=== PATIENT | female | born 1960 | race African-American/Black ===

== ENCOUNTER 2018-07-21 07:22 | Emergency (ER) | payer SELFPAY ==
--- NOTE | 2018-07-21 08:49 | ER ---
Nurse's Notes [facility] Name: Enedina Gutierrez Age: 57 yrs Sex: Female : 1960 Arrival Date: 07/21/2018 Time: 07:27 Bed 16 Private MD: Out, [facility] Diagnosis: Impacted cerumen, left ear Presentation: 07/21 07:31 Presenting complaint: Patient states: left ear pain started Isaac. Attempted to clean sv it with some wax remover and hydrogen peroxide but it feels clogged. Transition of care: patient was not received from another setting of care. Onset of symptoms was July 18, 2018. Care prior to arrival: None. 07:31 Method Of Arrival: Ambulatory sv 07:31 Acuity: MUNIRA 4 sv 07:55 Risk Assessment: Do you want to hurt yourself or someone else? Patient reports no ph desire to harm self or others. 07:58 Initial Sepsis Screen: Does the patient meet any 2 criteria? No. Patient's initial ph sepsis screen is negative. Does the patient have a suspected source of infection? No. Patient's initial sepsis screen is negative. Triage Assessment: 07:31 General: Appears in no apparent distress. comfortable, well developed, Behavior is sv calm, cooperative, appropriate for age. Pain: Complains of pain in left ear Pain currently is 6 out of 10 on a pain scale. EENT: Reports pain in left ear. Neuro: Level of Consciousness is awake, alert, obeys commands, Oriented to person, place, time, situation, Gait is steady. Respiratory: Respiratory effort is even, unlabored, Respiratory pattern is regular, symmetrical. Historical: - Allergies: 07:32 PENICILLINS; sv - PMHx: 07:32 None; sv - PSHx: 07:32 ankle; leg; sv - Immunization history:: Adult Immunizations up to date. - Social history:: Smoking status: Patient/guardian denies using tobacco. - Ebola Screening: : No symptoms or risks identified at this time. Screenin:55 Abuse screen: Denies threats or abuse. Denies injuries from another. Nutritional ph screening: No deficits noted. Tuberculosis screening: No symptoms or risk factors identified. Fall Risk None identified. Assessment: 08:12 General: Appears in no apparent distress. comfortable, well groomed, Behavior is calm, ph cooperative, appropriate for age. Pain: Complains of pain in left ear. Neuro: Level of Consciousness is awake, alert, obeys commands, Oriented to person, place, time, situation. Cardiovascular: Capillary refill < 3 seconds in bilateral fingers Patient's skin is warm and dry. Respiratory: Airway is patent Respiratory effort is even, unlabored, Respiratory pattern is regular, symmetrical. GI: No signs and/or symptoms were reported involving the gastrointestinal system. EENT: Reports decreased hearing in left ear. Derm: Skin is intact, is healthy with good turgor, Skin is pink, warm \\T\\ dry. Musculoskeletal: Circulation, motion, and sensation intact. Range of motion: intact in all extremities. 09:25 Reassessment: Patient appears in no apparent distress at this time. Patient and/or ph family updated on plan of care and expected duration. Pain level reassessed. Patient is alert, oriented x 3, equal unlabored respirations, skin warm/dry/pink. Pt d/c home w/ family. Vital Signs: 07:32 BP 159 / 81; Pulse 76; Resp 20; Temp 97.6; Pulse Ox 98% ; Weight 129.73 kg; Height 5 sv ft. 6 in. (167.64 cm); Pain 6/10; 09:26 BP 142 / 78; Pulse 74; Resp 18; Temp 98.0; Pulse Ox 99% on R/A; ph 07:32 Body Mass Index 46.16 (129.73 kg, 167.64 cm) sv ED Course: 07:27 Patient arrived in ED. dl4 07:28 Out, [facility] is Private Physician. dl4 07:31 Triage completed. sv 07:32 Arm band placed on. sv 07:35 Dionicio Chapa NP is PHCP. pm1 07:35 Molina Leiva MD is Attending Physician. pm1 07:47 Kristen Antoine, PUNEET is Primary Nurse. ph 07:56 Patient has correct armband on for positive identification. Pulse ox on. NIBP on. ph 09:26 No provider procedures requiring assistance completed. Patient did not have IV access ph during this emergency room visit. Administered Medications: No medications were administered Outcome: 08:49 Discharge ordered by MD. pm1 09:27 Discharged to home ambulatory, with family. ph 09:27 Condition: good 09:27 Discharge instructions given to patient, Instructed on discharge instructions, follow up and referral plans. medication usage, Demonstrated understanding of instructions, follow-up care, medications, Prescriptions given X 1. 09:27 Patient left the ED. ph Signatures: Linda Lopez RN RN Kristen Antoine RN RN Dionicio Chapa, GOAT DRIVER GOAT DRIVER pm1 Sayda, Ted dl4 Corrections: (The following items were deleted from the chart) 07:33 07:32 Pulse 76bpm; Resp 20bpm; Pulse Ox 98%; Temp 97.6F; 129.73 kg; Height 5 ft. 6 in.; sv BMI: 46.1; Pain 6/10; sv 07:57 07:47 General: Appears in no apparent distress. comfortable, obese, well groomed, ph Behavior is calm, cooperative, appropriate for age, Reports chills for >3 days, fever for > 3 days, ph 07:57 07:47 Pain: Complains of pain in chest and "all over" ph ph 07:57 07:47 Neuro: Level of Consciousness is awake, alert, obeys commands, Oriented to ph person, place, time, situation, ph 07:57 07:47 Cardiovascular: Reports chest pain, shortness of breath, vomiting, Capillary ph refill < 3 seconds in bilateral fingers Patient's skin is warm and dry. Chest pain is located in right left anterior chest wall is aggravated by breathing, ph 07:57 07:47 Respiratory: Reports shortness of breath cough that is productive, pain with ph cough pain with respiration Airway is patent Respiratory effort is even, unlabored, Respiratory pattern is regular, symmetrical, Breath sounds are coarse in mediastinum ph 07:57 07:47 GI: Reports diarrhea, vomiting, Patient currently denies abdominal pain, nausea, ph ph 07:57 07:47 EENT: Reports nasal congestion Denies pain when swallowing ph ph 07:57 07:47 Derm: Skin is intact, ph ph 07:57 07:47 Musculoskeletal: Circulation, motion, and sensation intact. Range of motion: ph intact in all extremities, ph 07:57 07:53 Reassessment: Patient appears in no apparent distress at this time. Patient ph and/or family updated on plan of care and expected duration. Pain level reassessed. Patient is alert, oriented x 3, equal unlabored respirations, skin warm/dry/pink. neb tx complete, pt taken for xray via wheelchair ph 07:57 07:40 Inserted saline lock: 22 gauge in right wrist, using aseptic technique. Blood ph collected. Missed attempt(s): 20 gauge in right antecubital area. Bleeding controlled, band aid applied, catheter tip intact. ph 07:58 07:55 Initial Sepsis Screen: Does the patient meet any 2 criteria? No. Patient's ph initial sepsis screen is negative. Does the patient have a suspected source of infection? Yes: Productive cough/pneumonia ph
--- NOTE | 2018-07-21 08:49 | EDPHYS ---
Physician Documentation [facility] Name: Enedina Gutierrez Age: 57 yrs Sex: Female : 1960 Arrival Date: 07/21/2018 Time: 07:27 Bed 16 Private MD: Out, [facility] ED Physician Molina Leiva HPI: 07/21 07:50 This 57 yrs old Black Female presents to ER via Ambulatory with complaints of Left Ear pm1 Pain. 07:50 The patient presents with pain, decreased hearing. The complaints affect the left ear. pm1 Onset: The symptoms/episode began/occurred 3 day(s) ago. Modifying factors: The symptoms are alleviated by nothing, the symptoms are aggravated by nothing. Associated signs and symptoms: Pertinent negatives: fever, nausea, sore throat, tinnitus, vertigo, vomiting. Severity of symptoms: in the emergency department the symptoms are unchanged. The patient has not recently seen a physician. Patient reports no improvement or ability to remove wax with hydrogen peroxide, earwax removal kits. Historical: - Allergies: 07:32 PENICILLINS; sv - PMHx: 07:32 None; sv - PSHx: 07:32 ankle; leg; sv - Immunization history:: Adult Immunizations up to date. - Social history:: Smoking status: Patient/guardian denies using tobacco. - Ebola Screening: : No symptoms or risks identified at this time. ROS: 07:50 Constitutional: Negative for fever, chills, and weight loss, Eyes: Negative for injury, pm1 pain, redness, and discharge. 07:50 Neck: Negative for injury, pain, and swelling, Cardiovascular: Negative for chest pain, palpitations, and edema, Respiratory: Negative for shortness of breath, cough, wheezing, and pleuritic chest pain, Abdomen/GI: Negative for abdominal pain, nausea, vomiting, diarrhea, and constipation, Back: Negative for injury and pain, : Negative for injury, bleeding, discharge, and swelling, MS/Extremity: Negative for injury and deformity, Skin: Negative for injury, rash, and discoloration, Neuro: Negative for headache, weakness, numbness, tingling, and seizure. 07:50 ENT: Positive for ear pain, decreased hearing, Negative for drainage from ear(s), sinus congestion, sinus pain, sore throat, difficulty swallowing, difficulty handling secretions, hoarseness. Exam: 07:50 Constitutional: This is a well developed, well nourished patient who is awake, alert, pm1 and in no acute distress. Head/Face: Normocephalic, atraumatic. Eyes: Pupils equal round and reactive to light, extra-ocular motions intact. Lids and lashes normal. Conjunctiva and sclera are non-icteric and not injected. Cornea within normal limits. Periorbital areas with no swelling, redness, or edema. 07:50 Neck: Trachea midline, no thyromegaly or masses palpated, and no cervical lymphadenopathy. Supple, full range of motion without nuchal rigidity, or vertebral point tenderness. No Meningismus. Chest/axilla: Normal chest wall appearance and motion. Nontender with no deformity. No lesions are appreciated. Cardiovascular: Regular rate and rhythm with a normal S1 and S2. No gallops, murmurs, or rubs. Normal PMI, no JVD. No pulse deficits. Respiratory: Lungs have equal breath sounds bilaterally, clear to auscultation and percussion. No rales, rhonchi or wheezes noted. No increased work of breathing, no retractions or nasal flaring. Back: No spinal tenderness. No costovertebral tenderness. Full range of motion. Skin: Warm, dry with normal turgor. Normal color with no rashes, no lesions, and no evidence of cellulitis. MS/ Extremity: Pulses equal, no cyanosis. Neurovascular intact. Full, normal range of motion. 07:50 ENT: External ear(s): are unremarkable, Ear canal(s): cerumen impaction, occluding the left ear canal, TM's: not visable, because of cerumen, left ear, Examination of the other ear shows no obvious abnormality, right ear normal, Nose: is normal, Mouth: is normal, Posterior pharynx: is normal, airway is patent, normal tonsil apperance, normal sized tonsils, normal uvula appearance, normal uvula size. 07:50 Neuro: Orientation: is normal, Motor: is normal, moves all fours. Vital Signs: 07:32 BP 159 / 81; Pulse 76; Resp 20; Temp 97.6; Pulse Ox 98% ; Weight 129.73 kg; Height 5 sv ft. 6 in. (167.64 cm); Pain 6/10; 09:26 BP 142 / 78; Pulse 74; Resp 18; Temp 98.0; Pulse Ox 99% on R/A; ph 07:32 Body Mass Index 46.16 (129.73 kg, 167.64 cm) MDM: 07:36 Patient medically screened. [facility] 08:34 Data reviewed: vital signs. Data interpreted: Pulse oximetry: on room air is 98 %. pm1 Interpretation: normal. 08:40 ED course: Patient with continued decreased hearing and left ear pain despite attempts pm1 to remove cerumen at home with OT ear wax removal kits, q-tips, and hydrogen peroxide. Abrasion to left ear canal as a result of impacted cerumen removal with curette. Patient reports improved hearing. Unable to visualize left tympanic membrane. Will cover patient with antibiotics for abrasion. 08:48 Counseling: I had a detailed discussion with the patient and/or guardian regarding: the pm1 historical points, exam findings, and any diagnostic results supporting the discharge/admit diagnosis, the need for outpatient follow up, to return to the emergency department if symptoms worsen or persist or if there are any questions or concerns that arise at home. Administered Medications: No medications were administered Disposition: 07/22 08:42 Co-signature as Attending Physician, Molina Leiva MD I agree with the assessment and [facility] plan of care. Disposition: 07/21/18 08:49 Discharged to Home. Impression: Impacted cerumen, left ear. - Condition is Stable. - Discharge Instructions: Earwax Buildup, Adult. - Prescriptions for Zithromax Z- Patricio 250 mg Oral Tablet - take 1 tablet by ORAL route as directed for 5 days Day 1 - take two (2) tablets one time. Day 2, 3, 4 , 5 take one (1) tablet once daily.; 6 tablet. - Medication Reconciliation Form, Thank You Letter, Antibiotic Education, Prescription Opioid Use, Work release form form. - Follow up: Emergency Department; When: As needed; Reason: Worsening of condition. Follow up: Private Physician; When: 2 - 3 days; Reason: Recheck today's complaints, Continuance of care, Re-evaluation by your physician. - Problem is new. - Symptoms have improved. Signatures: Linda Lopez RN RN sv Anderson, Corey, MD MD cha Hall, Patricia RN RN ph Dioniico Chapa, [address] pm1 Corrections: (The following items were deleted from the chart) 07/21 09:27 08:49 07/21/2018 08:49 Discharged to Home. Impression: Impacted cerumen, left ear. ph Condition is Stable. Forms are Medication Reconciliation Form, Thank You Letter, Antibiotic Education, Prescription Opioid Use. Follow up: Emergency Department; When: As needed; Reason: Worsening of condition. Follow up: Private Physician; When: 2 - 3 days; Reason: Recheck today's complaints, Continuance of care, Re-evaluation by your physician. Problem is new. Symptoms have improved. pm1
[2018-07-21 09:33] VITALS: BP 142/78; TEMP 98; O2SAT 99
== END 2018-07-21 09:27 | disposition home or self-care (01) ==
LOC: ER 07:22
PROC: 09C47ZZ Extirpation of Matter from Left External Auditory Canal, Via Natural or Artificial Opening (ICD-10-PCS; principal; 2018-07-21)
DX: H61.22 Impacted cerumen, left ear (principal); Z88.0 Allergy status to penicillin
CPT/HCPCS: 99283

== ENCOUNTER 2024-02-02 09:34 | Emergency (ER) | payer OTHER ==
--- OUTSIDE RECORDS SUMMARY | 2024-02-02 09:37 | XMS REPORT | Continuity of Care Document ---
Author Name Unknown Address [address] [facility] [address] [place] [address] [facility] thconnect Address [address] [facility]. [address] [place] [address] Care Team Providers Care Environmental Tech Name Role Phone Piper Osman Attending Clinician Unavailable ELA GONSALES Attending Clinician Unavailab le DYLAN Attending Clinician Unavailable Piper Osman Admitting Clinician Unavailable Payers Payer Name Policy Type Policy Number Effective Date Expirati on Date Source [facility] DIMITRI LARSEN COPAY FOCUS 9 [id number] 2023 00:00:00 Problems Condition Name Condition Details Condition Category Status Onset Date Resolution Date Last Treatment Date Treating Clinician Comments Source Encounter for screening for lipid disorder Encounter for screening for lipid disorder Disease Active 05-27 00:00: 00 Alayna orozco Primary hypertensi on Primary hypertensi on Disease Active 05-27 00:00: 00 Alayna orozco History of bronchitis History of bronchitis Disease Active 05-27 00:00: 00 Alayna orozco Class 3 severe obesity due to excess calories without serious comorbidit y with body mass index (BMI) of 40.0 to 44.9 in adult Class 3 severe obesity due to excess calories without serious comorbidit y with body mass index (BMI) of 40.0 to 44.9 in adult Disease Active 05-27 00:00: 00 Alayna orozco Family history of diabetes mellitus Family history of diabetes mellitus Disease Active 05-27 00:00: 00 Alayna orozco Allergies, Adverse Reactions, Alerts Allergy Name Allergy Type Status Severity Reaction(s) Onset Date Inactive Date Treating Clinician Comments Source Penicill ins Propensi ty to adverse reaction s Active Hives 07-25 00:00: 00 Alayna orozco Tramadol Propensi ty to adverse reaction s Active Rash 07-25 00:00: 00 Alayna orozco Social History Social Habit Start Date Stop Date Quantity Comments Source Sexual orientation Luisa gallegos Lico - External Alcoholic beverage intake 2023-07-19 00:00:00 2023-07-19 00:00:00 Current drinker of alcohol (finding) Alayna Barfield - External Alcohol intake 2023-05-28 00:00:00 2023-05-28 00:00:00 Current drinker of alcohol (finding) Alayna Barfield - External History of Social function 2023-05-28 00:00:00 2023-05-28 00:00:00 lAayna Barfield - External Alcohol Comment 2023-05-28 00:00:00 2023-05-28 00:00:00 social Alayna Barfield - External Tobacco use and exposure 2023-05-28 00:00:00 2023-05-28 00:00:00 Smokeless tobacco non-user Alayna Barfield - External Sex assigned at 1960 00:00:00 1960 00:00:00 Alayna Barfield - External Smoking Status Start Date Stop Date Source Never smoked tobacco Alayna Barfield - External Medications Ordered Medication Name Filled Medication Name Start Date Stop Date Current Medication? Ordering Clinician Indication Dosage Frequency Signature (SIG) Comments Components Source Baclofen 10 MG oral Tablet 07-18 00:00: 00 Yes [id number] 10mg Q.5D Take 1 tablet (10 mg total) by mouth 2 times daily as needed for muscle spasms or pain No driving on medication . Alayna Holt Externa pam Metformin HCl 500 MG oral Tablet 06-10 00:00: 00 Yes [id number] 500mg Take 1 tablet (500 mg total) by mouth in the morning and 1 tablet (500 mg total) in the evening. Take with meals. Alayna orozco Blood Glucose Monitoring Suppl (Blood Glucose Monitor System) w/Device does not apply Kit 06-10 00:00: 00 Yes [id number] Please check blood sugars twice a day. Alayna orozco Glucose Blood in vitro Strip 06-10 00:00: 00 Yes [id number] 1{each} 1 each by other route daily. Alayna orozco Lancets [place] [facility] [place]:00: 00 Yes [id number] For twice daily glucose monitoring . Alayna orozco Amlodipine Besylate 10 MG oral Tablet 05-27 00:00: 00 Yes [id number] 10mg Take 1 tablet (10 mg total) by mouth daily. Alayna orozco LISINOPRIL- HCTZ 20-12.5 MG oral Tablet 05-27 00:00: 00 Yes [id number] 1{tbl} Take 1 tablet by mouth daily. Alayna orozco Metoprolol Succinate 100 MG oral TABLET SR 24 HR 05-27 00:00: 00 Yes [id number] 100mg Take 1 tablet (100 mg total) by mouth daily. Alayna orozco busPIRone HCl 10 MG oral Tablet 05-27 00:00: 00 Yes [id number] 10mg Q.5D Take 1 tablet (10 mg total) by mouth 2 times daily as needed. Alayna orozco Budesonide- Formoterol Fumarate (Symbicort) 80-4.5 MCG/ACT inhalation Aerosol 05-27 00:00: 00 07-18 00:00 :00 No [id number] 2{puff} Inhale 2 puffs into the lungs daily. Alayna orozco Albuterol HFA 108 (90 Base) MCG/ACT IN AERS 2022-02 00:00: 00 Yes Alayna orozco Amlodipine Besylate 10 MG oral Tablet 2022-02 00:00: 00 05-27 00:00 :00 No Alayna orozco Budesonide- Formoterol Fumarate (Symbicort) 80-4.5 MCG/ACT inhalation Aerosol 2022-02 0- 00:00: 00 05-27 00:00 :00 Ami orozco LISINOPRIL- HCTZ 20-12.5 MG oral Tablet 2022-02 0- 00:00: 00 05-27 00:00 :00 No Alayna orozco Metoprolol Succinate 100 MG oral TABLET SR 24 HR 2022-02- 00:00: 00 05-27 00:00 :00 Ami orozco Immunizations Ordered Immunization Name Filled Immunization Name Date Status Comments Source Influenza, Injectable, Mdck, Preservative Free, Quadrivalent Unknown Completed Alayna Barfield - External Influenza Virus Vaccine, No Preserv, age 6 months and up Unknown Completed Alayna davis - External Influenza Virus Vaccine, Quad, Egg Free Unknown Completed Aalyna Barfield - External RSV, Arexvy Unknown Completed Alayna davis - External Influenza, Injectable, Mdck, Preservative Free, Quadrivalent Unknown Completed Alayna Barfield - External Influenza Virus Vaccine, No Preserv, age 6 months and up Unknown Completed Alayna davis - External Influenza Virus Vaccine, Quad, Egg Free Unknown Completed Alayna Barfield - External RSV, Arexvy Unknown Completed Alayna davis - External Vital Signs Vital Name Observation Time Observation Value Comments S ource Systolic blood pressure 2023-07-19 18:50:00 132 mm[Hg] Alayna Kaur ld - External Diastolic blood pressure 2023-07-19 18:50:00 78 mm[Hg] Alayna Kaur ld - External Heart rate 2023-07-19 18:50:00 82 /min Luz Marina Barfield - External Body temperature 2023-07-19 18:50:00 36.67 Rosa Alayna Barfield - External Respiratory rate 2023-07-19 18:50:00 18 /min Alayna Barfield - External Body height 2023-07-19 18:50:00 167.6 cm Mary Ann Barfield - External Body weight 2023-07-19 18:50:00 135.796 kg Mary Ann ey Seybold - External BMI 2023-07-19 18:50:00 48.32 kg/m2 Mary Ann ey Seybold - External Oxygen saturation in Arterial blood by Pulse oximetry 2023-07-19 18:50:00 99 /min Alayna Kaur ld - External Systolic blood pressure 2023-05-28 14:25:00 136 mm[Hg] Alayna Hernandezo ld - External Diastolic blood pressure 2023-05-28 14:25:00 74 mm[Hg] Alayna Hernandezo ld - External Heart rate 2023-05-28 14:25:00 78 /min Jed y Seybold - External Body temperature 2023-05-28 14:25:00 36.61 Rosa Alayna Flynnybold - External Respiratory rate 2023-05-28 14:25:00 16 /min Alaynajames Barfield - External Body height 2023-05-28 14:25:00 167.6 cm Mary Ann quezada Seybold - External Body weight 2023-05-28 14:25:00 122.018 kg Mary Ann quezada Seybold - External BMI 2023-05-28 14:25:00 43.42 kg/m2 Mary Ann quezada Seybold - External Oxygen saturation in Arterial blood by Pulse oximetry 2023-05-28 14:25:00 98 /min Alayna Kaur ld - External Encounters Start Date/Time End Date/Time Encounter Type Admission Type Attending [facility] Care Department Encounter ID Source 2023-11-25 16:30:00 Outpatient OsmanPiper noland [facility] [id number] [facility] 2023-11-18 14:06:00 Outpatient OsmanPiper noland [facility] [id number] [facility] 2021-03-22 14:17:13 Outpatient OsmanPiper noland [facility] [id number] [facility] 2024-01-15 00:00:00 2024-01-15 00:00:00 Outpatient ELA GONSALES [id number] Alayna Barfield 2023-12-06 00:00:00 2023-12-06 00:00:00 Outpatient ELA GONSALES ALAYNA [id number] Alayna [facility] 2023-12-06 00:00:00 2023-12-06 00:00:00 Outpatient ELA GONSALES ALAYNA [id number] Alayna [facility] 2023-12-06 00:00:00 2023-12-06 00:00:00 Outpatient ELA GONSALES ALAYNA [id number] Alayna [facility] 2023-08-27 15:00:00 2023-08-27 15:00:00 Outpatient ELA GONSALES ALAYNA [id number] Alayna [facility] 2023-08-27 11:30:00 2023-08-27 11:30:00 Outpatient ELA GONSALES ALAYNA [id number] Alayna [facility] 2023-07-19 14:00:00 2023-07-19 14:00:00 Outpatient ELA GONSALES ALAYNA [id number] [facility] 2023-06-27 09:00:00 2023-06-27 09:00:00 Outpatient ELA GONSALES ALAYNA [id number] [facility] 2023-06-11 00:00:00 2023-06-11 00:00:00 Outpatient ELA GONSALES ALAYNA [id number] Alayna [facility] 2023-06-08 00:00:00 2023-06-08 00:00:00 [id number] [facility] 10:15:00 2023-05-28 10:15:00 Outpatient LABRebecca [facility] [id number] [facility] 09:30:00 2023-05-28 09:30:00 Outpatient ELA GONSALESJAMES RIVERO [id number] Alayna [facility] 2023-05-24 10:30:00 2023-05-24 10:30:00 Outpatient ELA GONSALESJAMES [facility]IV[facility] [id number] [facility]22-12-05 15:53:51 2022-12-05 15:53:51 Outpatient SFA [facility] [id number] 2022-05-02 13:24:26 2022-05-02 13:24:26 Outpatient SFA [facility] [id number] 2022-04-26 10:31:52 2022-04-26 10:31:52 Outpatient SFA [facility] [id number]vin 2022-01-26 16:38:57 2022-01-26 16:38:57 Outpatient [facility] [id number] [address] Garvin Results Test Description Test Time Test Comments Results Result Co mments Source LIPID [id number] 05:35:43* Test Item Value Reference Range Interpretation Comme nts CHOLESTEROL (test code = 2210) 156 MG/DL <200 TRIGLYCERIDES (test code = 2232) 91 MG/DL <150 HDL CHOLESTEROL (test code = 2220) 55 MG/DL >39 CALC LDL CHOL (test code = 2237) 82 MG/DL <100 NOTE: CALCULATED LDL IS BASED ON MICHAEL-JUAN METHOD WHICHINCLUDES ADJUSTABLE TRIGLYCERIDE:VLDL CHOLESTEROL RATIO.THIS FACTOR VARIES BY MEASURED TRIGLYCERIDE AND NON-HDLCHOLESTEROL CONCENTRATIONS WITH INCREASED CALCULATED LDL SEENIN HIGHER TRIGLYCERIDE OR LOWER NON-HDL SPECIMENS. FOR MOREINFORMATION, SEE CLIENT ANNOUNCEMENT AT [email or web address] RISK RATIO LDL/HDL (test code = 2238) 1.49 RATIO <3.22 ALBUMIN, URINE, [id number] 04:24:33* Test Item Value Reference Range Interpretation Comme nts ALBUMIN, URINE, RANDOM (test code = 49553) <0.2 MG/DL NOT ESTAB UNLESS OTHERWISE INDICATED, ALL TESTING PERFORMED [facility] [address] [place] [id number] IT MANAGER: MAYCOL COOLEY M.D. CLIA NUMBER [id number] [facility] [place]. [id number] HEMOGLOBIN [id number] 04:08:15* Test Item Value Reference Range Interpretation Comme nts HEMOGLOBIN A1c (test code = 84248) 6.6 % 4.2-5.6 H [employer] GUIDELINES FOR HGB A1C: PREDIABETES/INCREASED RISK . . . . . . . 5.7-6.4% DIAGNOSIS OF DIABETES . . . . . . . . . >=6.5% WITH CONFIRMATION OR APPROPRIATE SYMPTOMS NOTE: ASSAY MAY BE AFFECTED BY HEMOGLOBINOPATHIES (SICKLE CELL ANEMIA, S-C DISEASE, OTHERS) OR ARTIFICIALLY LOWERED BY DECREASED RED CELL SURVIVAL (HEMOLYTIC ANEMIAS, BLOOD LOSS, ETC.). CONSIDER ALTERNATE TESTING OR LABORATORY CONSULTATION. CBC W/AUTO DIFF WITH [id number] 03:24:32* Test Item Value Reference Range Interpretation Comme nts WBC (test code = 1001) 4.7 K/UL 3.5-11.0 RBC (test code = 1002) 3.90 M/UL 3.80-5.40 HEMOGLOBIN (test code = 1003) 11.8 G/DL 11.5-15.5 HEMATOCRIT (test code = 1004) 35.4 % 34.0-45.0 MCV (test code = 1005) 90.8 fL 80.0-99.0 MCH (test code = 1006) 30.3 PG 25.0-33.0 MCHC (test code = 1007) 33.3 G/DL 31.0-36.0 RDW (test code = 1038) 12.9 % 11.5-15.0 NEUTROPHILS (test code = 1008) 50.0 % LYMPHOCYTES (test code = 1010) 37.8 % MONOCYTES (test code = 1011) 9.7 % EOSINOPHILS (test code = 1012) 1.9 % BASOPHILS (test code = 1013) 0.4 % IMMATURE GRANULOCYTES (test code = 1036) 0.2 % NUCLEATED RBCS (test code = 1065) 0.0 /100 WBC'S See_Comment [Automated [employer] ge] The system which generated this result transmitted reference range: 0.0. The reference range was not used to interpret this result as normal/abnormal. PLATELET COUNT (test code = 1015) 345 K/UL 130-400 ABSOLUTE NEUTROPHILS (test code = 1066) 2.36 K/UL 1.50-7.50 ABSOLUTE LYMPHOCYTES (test code = 1067) 1.79 K/UL 1.00-4.00 ABSOLUTE MONOCYTES (test code = 1068) 0.46 K/UL 0.20-1.00 ABSOLUTE EOSINOPHILS (test code = 1040) 0.09 K/UL 0.00-0.50 ABSOLUTE BASOPHILS (test code = 1069) 0.02 K/UL 0.00-0.20 ABS IMMATURE GRANULOCYTES (test code = 1020) 0.01 K/UL 0.00-0.10 ABS NUCLEATED RBCS (test code = 67136) 0.00 K/UL 0.00-0.11
--- NOTE | 2024-02-02 11:00 | RAD REPORT ---
EXAM: Chest Single View HISTORY: COUGH COMPARISON: 02/28/2012 FINDINGS: LUNGS/PLEURA: The lungs are clear. No pleural effusions or pneumothorax. No pulmonary edema. MEDIASTINUM: The mediastinal silhouette is within normal limits. CARDIAC: The cardiac silhouette is within normal limits. UPPER ABDOMEN: No significant abnormality. BONES: No acute fracture. LINES/TUBES/OTHER: N/A IMPRESSION: No evidence of acute cardiopulmonary disease.
[2024-02-02 11:34] LABS: SARS-CoV-2 Antigen CONTROL BLUE LINE VIS/BG OK; SARS-CoV-2 Antigen Rapid Res Negative (Negative)
--- NOTE | 2024-02-02 12:02 | ER ---
Nurse's Notes [facility] Name: Enedina Gutierrez Age: 63 yrs Sex: Female : 1960 Arrival Date: 02/02/2024 Time: 09:34 Bed 6 Private MD: Diagnosis: Bronchitis, upper respiratory infection, possible pneumonia being treated outpatient by PCP Presentation: 02/01 09:58 Chief complaint: Productive cough and left knee pain x 1 week. Intermittent facial hb numbness after starting Levaquin 2 days ago, VAN Negative. Coronavirus screen: Client presents with at least one sign or symptom that may indicate coronavirus-19. Provider contacted for isolation considerations. Ebola Screen: No symptoms or risks identified at this time. Initial Sepsis Screen: Does the patient meet any 2 criteria? No. Patient's initial sepsis screen is negative. Does the patient have a suspected source of infection? No. Patient's initial sepsis screen is negative. Risk Assessment: Do you want to hurt yourself or someone else? Patient reports no desire to harm self or others. Onset of symptoms was January 26, 2024. 09:58 Method Of Arrival: Ambulatory 09:58 Acuity: MUNIRA 3 hb 12:19 Anaphylaxis evaluation, no signs or symptoms of anaphylaxis were noted. tm6 Historical: - Allergies: 10:00 PENICILLINS; hb - Immunization history:: Flu vaccine status is unknown. - Infectious Disease History:: Denies. - Social history:: Smoking status: Patient denies any tobacco usage or history of. Screenin:55 [facility] ED Fall Risk Assessment (Adult) History of falling in the last 3 months, tm6 including since admission No falls in past 3 months (0 pts) Confusion or Disorientation No (0 pts) Intoxicated or Sedated No (0 pts) Impaired Gait No (0 pts) Mobility Assist Device Used No (0 pt) Altered Elimination No (0 pt) Score/Fall Risk Level 0 - 2 = Low Risk Oriented to surroundings, Maintained a safe environment, Educated pt \T\ family on fall prevention, incl call for assistance when getting out of bed. Abuse screen: Denies threats or abuse. Denies injuries from another. Nutritional screening: No deficits noted. Tuberculosis screening: No symptoms or risk factors identified. Assessment: 10:55 General: Appears in no apparent distress. Behavior is calm, cooperative. Pain: tm6 Complains of pain in right knee Pain began years ago. Neuro: Level of Consciousness is awake, alert, obeys commands, Oriented to person, place, time, situation. Cardiovascular: Patient's skin is warm and dry. Respiratory: Reports cough that is Airway is patent Respiratory effort is even, unlabored, Breath sounds are clear. GI: No signs and/or symptoms were reported involving the gastrointestinal system. Abdomen is round. : No signs and/or symptoms were reported regarding the genitourinary system. EENT: Reports nasal congestion. Derm: No signs and/or symptoms reported regarding the dermatologic system. Musculoskeletal: Reports pain in right knee. 12:19 Reassessment: Patient and/or family updated on plan of care and expected duration. Pain tm6 level reassessed. Patient is alert, oriented x 3, equal unlabored respirations, skin warm/dry/pink. Vital Signs: 09:58 BP 178 / 98; Pulse 81; Resp 18; Temp 98.9(O); Pulse Ox 100% on R/A; Weight 131.09 kg; hb Height 5 ft. 4 in. ; Pain 9/10; 10:50 BP 156 / 68; Pulse 67; Pulse Ox 94% ; MAP 93 mmHg; tm6 12:18 BP 183 / 90; Pulse 76; Resp 17; Temp 98.9; Pulse Ox 98% on R/A; MAP 117 mmHg; Pain 2/10;tm6 09:58 Body Mass Index 49.61 (131.09 kg, 162.56 cm) hb 09:58 Pain Scale: Adult hb 12:18 Pain Scale: Adult tm6 ED Course: 09:38 Patient arrived in ED. mg5 09:44 Suresh Matamoros MD is Attending Physician. sp3 10:00 Triage completed. hb 10:12 COVID swab sent to lab. Flu and/or RSV swab sent to lab. Strep swab sent to lab. em1 10:12 Strep Sent. em1 10:13 Flu Sent. em1 10:13 SARS RAPID Sent. em1 10:13 RSV Sent. em1 10:34 CXR XRAY In Process Unspecified. EDMS 10:55 Mariajose Manrique, RN is Primary Nurse. tm6 10:55 Patient has correct armband on for positive identification. Bed in low position. Call tm6 light in reach. Side rails up X 1. Provided Education on: use of call davidson. Client placed on continuous cardiac and pulse oximetry monitoring. NIBP monitoring applied. Pulse ox on. NIBP on. Door closed. Noise minimized. Warm blanket given. Pillow given. 10:55 Arm band placed on right wrist. tm6 12:19 No provider procedures requiring assistance completed. Patient did not have IV access tm6 during this emergency room visit. Administered Medications: No medications were administered Medication: 10:55 VIS not applicable for this client. tm6 Outcome: 12:01 Discharge ordered by . sp3 12:19 Discharged to home via wheelchair, with family, tm6 12:19 Condition: stable 12:19 Discharge instructions given to patient, family, Instructed on discharge instructions, follow up and referral plans. medication usage, Demonstrated understanding of instructions, follow-up care, medications, Prescriptions given X 1, 12:20 Patient left the ED. tm6 Signatures: Dispatcher [employer] EDMS Edgar Rome em1 Zuleima Vásquez, RN RN Suresh Matamoros MD MD sp3 Judith Gonsalez mg5 Mariajose Manrique, PUNEET RN tm6
--- NOTE | 2024-02-02 12:02 | EDPHYS ---
Physician Documentation [facility] Name: Enedina Gutierrez Age: 63 yrs Sex: Female : 1960 Arrival Date: 02/02/2024 Time: 09:34 Bed 6 Private MD: ED Physician Suresh Matamoros HPI: 02/01 10:17 This 63 yrs old Black Female presents to ER via Ambulatory with complaints of Allergic sp3 Reaction, Knee Pain. 10:17 63-year-old female presents with cough, congestion and a resolved mouth numbness after sp3 taking Levaquin prescribed by her PCP. She is requesting change of antibiotic and also for us to assess her left knee. Her left knee pain has been occurring for several weeks and she is already in the care of of Dr. Zamora orthopedics. He has performed some knee injections have helped minimally. She denies any significant increasing pain, fever, warmth or any other signs or symptoms at this time. She denies chest pain, back pain, measured fever or any other symptoms regarding her URI. Outpatient COVID was negative however she has not had a chest x-ray or any other swabs.. Historical: - Allergies: 10:00 PENICILLINS; hb - Immunization history:: Flu vaccine status is unknown. - Infectious Disease History:: Denies. - Social history:: Smoking status: Patient denies any tobacco usage or history of. ROS: 10:18 Constitutional: Negative for fever, chills, and weight loss, Eyes: Negative for injury, sp3 pain, redness, and discharge, ENT: Negative for injury, pain, and discharge, Neck: Negative for injury, pain, and swelling, Cardiovascular: Negative for chest pain, palpitations, and edema, Abdomen/GI: Negative for abdominal pain, nausea, vomiting, diarrhea, and constipation, Back: Negative for injury and pain, : Negative for injury, bleeding, discharge, and swelling, Skin: Negative for injury, rash, and discoloration, Neuro: Negative for headache, weakness, numbness, tingling, and seizure, Psych: Negative for depression, anxiety, suicide ideation, homicidal ideation, and hallucinations, Allergy/Immunology: Negative for hives, rash, and allergies, Endocrine: Negative for neck swelling, polydipsia, polyuria, polyphagia, and marked weight changes, Hematologic/Lymphatic: Negative for swollen nodes, abnormal bleeding, and unusual bruising, 10:18 All other systems are negative, Exam: 10:18 Constitutional: This is a well developed, well nourished patient who is awake, alert, sp3 and in no acute distress. Head/Face: Normocephalic, atraumatic. Eyes: Pupils equal round and reactive to light, extra-ocular motions intact. Lids and lashes normal. Conjunctiva and sclera are non-icteric and not injected. Cornea within normal limits. Periorbital areas with no swelling, redness, or edema. Neck: Trachea midline, no thyromegaly or masses palpated, and no cervical lymphadenopathy. Supple, full range of motion without nuchal rigidity, or vertebral point tenderness. No Meningismus. Chest/axilla: Normal chest wall appearance and motion. Nontender with no deformity. No lesions are appreciated. Cardiovascular: Regular rate and rhythm with a normal S1 and S2. No gallops, murmurs, or rubs. Normal PMI, no JVD. No pulse deficits. Abdomen/GI: Soft, non-tender, with normal bowel sounds. No distension or tympany. No guarding or rebound. No evidence of tenderness throughout. Back: No spinal tenderness. No costovertebral tenderness. Full range of motion. Skin: Warm, dry with normal turgor. Normal color with no rashes, no lesions, and no evidence of cellulitis. MS/ Extremity: Pulses equal, no cyanosis. Neurovascular intact. Full, normal range of motion. Neuro: Awake and alert, GCS 15, oriented to person, place, time, and situation. Cranial nerves II-XII grossly intact. Motor strength 5/5 in all extremities. Sensory grossly intact. Cerebellar exam normal. Normal gait. Psych: Awake, alert, with orientation to person, place and time. Behavior, mood, and affect are within normal limits. 10:18 Respiratory: Mild cough noted. No wheezing., 10:18 Musculoskeletal/extremity: Left knee mild swelling. Patient is ambulatory. Range of motion intact. Distal neurovascular exam intact. No signs of distal swelling, calf swelling or any other signs of DVT.. Vital Signs: 09:58 BP 178 / 98; Pulse 81; Resp 18; Temp 98.9(O); Pulse Ox 100% on R/A; Weight 131.09 kg; hb Height 5 ft. 4 in. ; Pain 9/10; 10:50 BP 156 / 68; Pulse 67; Pulse Ox 94% ; MAP 93 mmHg; tm6 12:18 BP 183 / 90; Pulse 76; Resp 17; Temp 98.9; Pulse Ox 98% on R/A; MAP 117 mmHg; Pain 2/10;tm6 09:58 Body Mass Index 49.61 (131.09 kg, 162.56 cm) hb 09:58 Pain Scale: Adult hb 12:18 Pain Scale: Adult tm6 MDM: 09:46 Medical Screening Exam initiated sp3 10:19 Data reviewed: vital signs, nurses notes, lab test result(s), radiologic studies. ED sp3 course: 63-year-old female with URI symptoms and also left knee pain already being worked up. No further intervention indicated in the ED as far as her knee pain goes. I am not suspicious of septic joint or other ongoing issue. She followed back up with Dr. Zamora regarding that. URI we will obtain swabs for flu, COVID, strep and RSV. Chest x-ray also pending. If workup negative we will discharge home on Zithromax with follow-up to PCP for continued monitoring and course. I am not highly suspicious for acute coronary syndrome, PE, vascular pathology or any other critical process at this time.. 12:01 ED course: Swabs negative. Will discharge on Zithromax.. sp3 02/01 09:56 Order name: Strep sp3 02/01 09:56 Order name: RSV; Complete Time: 12:01 sp3 02/01 09:56 Order name: SARS RAPID; Complete Time: 12:01 sp3 02/01 09:56 Order name: Flu; Complete Time: 12:01 sp3 02/01 11:37 Order name: Throat Culture EDMS 02/01 09:56 Order name: CXR XRAY; Complete Time: 11:01 sp3 Administered Medications: No medications were administered Disposition Summary: 02/02/24 12:01 Discharge Ordered Notes: Location: Home sp3 Condition: Stable sp3 Diagnosis - Bronchitis, upper respiratory infection, possible pneumonia being treated sp3 outpatient by PCP Followup: sp3 - With: Private Physician - When: Upon discharge from the Emergency Department - Reason: Continuance of care Discharge Instructions: - Discharge Summary Sheet sp3 - Acute Bronchitis, Adult sp3 Forms: - Medication Reconciliation Form sp3 - Antibiotic Education sp3 - Prescription Opioid Use sp3 - Patient Portal Instructions sp3 - Leadership Thank You Letter sp3 Prescriptions: - Zithromax Z-Patricio 250 mg Oral Tablet - take 1 tablet ORAL route as directed for 5 days Day 1 - take two (2) tablets sp3 one time. Day 2, 3, 4 , 5 take one (1) tablet once daily.; 6 tablet; Refills: 0, Product Selection Permitted Signatures: Dispatcher [employer] [facility] Zuleima Vásquez, PUNEET RN Suresh Matamoros MD MD sp3 Mariajose Manrique RN RN tm6
[2024-02-02 13:44] VITALS: TEMP 98.9
[2024-02-02 13:46] VITALS: BP 183/90; O2SAT 98
== END 2024-02-02 12:20 | disposition home or self-care (01) ==
LOC: ER 09:34
DX: J40 Bronchitis, not specified as acute or chronic (principal); M25.562 Pain in left knee; Z11.52 Encounter for screening for COVID-19
CPT/HCPCS: 36415; 71045; 87070; 87081; 87804; 87807; 87811; 99284